=== PATIENT | female | born 1975 | race Caucasian/White ===

== ENCOUNTER 2024-12-03 22:57 | Observation (INO) | payer MEDICARE ==
[~2024-12-03] VITALS: Ht 172.7 cm; Wt 120.2 kg
[~2024-12-03 22:57] MED LIST: BUPR150ER PO; CEPH500 PO; FOLI1 PO; MELA3 PO; METPRE4DP PO; Methocarbamol750 MG PO; NAPROXEN500 MG PO; ONE DAILY ESS400 MCG PO; VITAMIN B-1250 MG PO
[2024-12-03] MEDS ORDERED: LORazepam 2 MG/ML 1ML Injection IM ONE (23:15)
[2024-12-03] MEDS ORDERED: OLANZapine 10 MG Vial IM ONE (23:15)
[2024-12-03] MEDS ORDERED: Haloperidol Lactate Inj. 5 MG/ML Injection IM ONE (23:55)
[2024-12-03] MEDS ORDERED: DiphenhydrAMINE HCl 50 MG/ML 1ML Vial IM ONE (23:55)
[2024-12-04 00:45] LABS: BASOPHILS ABSOLUTE AUTO 0.07 K/mm3 (0.00-0.23); BASOPHILS PERCENT AUTO 1 % (0-2); EOSINOPHILS ABSOLUTE AUTO 0.02 K/mm3 (0.00-0.68); EOSINOPHILS PERCENT AUTO 0 % (0-6); Hematocrit 43.8 % (33.0-51.0); Hemoglobin 14.8 g/dL (11.5-16.0); IMMATURE GRAN ABSOLUTE AUTO 0.02 K/mm3 (0.00-0.10); IMMATURE GRAN PERCENT AUTO 0 % (0-1); LYMPHOCYTES ABSOLUTE AUTO 1.57 K/mm3 (0.84-5.20); LYMPHOCYTES PERCENT AUTO 24 % (21-46); MONOCYTES ABSOLUTE AUTO 0.58 K/mm3 (0.16-1.47); MONOCYTES PERCENT AUTO 9 % (4-13); Mean Corpuscular HGB 29.4 pg (26.0-34.0); Mean Corpuscular HGB Conc 33.8 g/dL (31.5-36.5); Mean Corpuscular Volume 87 fL (80-100); Mean Platelet Volume 9.6 fL (9.1-12.4); NEUTROPHILS ABSOLUTE AUTO 4.24 K/mm3 (1.96-9.15); NEUTROPHILS PERCENT AUTO 65 % (41-73); Platelet Count 258 K/mm3 (150-400); RDW Coefficient Variation 13.5 % (11.7-14.2); RDW Standard Deviation 43.3 fL (35.1-46.3); Red Blood Cell Count 5.03 M/mm3 (3.80-5.20)
[2024-12-04 00:48] LABS: Base Excess Venous -1.7 mmol/L; Bicarbonate Venous 23.5 mmol/L (24.0-30.0); PCO2 Venous 34.8 mmHg (38-42); pH Blood Venous 7.42 (7.34-7.37)
[2024-12-04 01:11] LABS: U Amphetamine Screen Not Detected; U Barbituate Screen Not Detected; U Benzodiazapine Screen Not Detected; U Cocaine Screen Not Detected; U Methadone Screen Not Detected; U Methamphetamine Screen Not Detected; U Opiates Screen Not Detected; U Phencyclidine Screen Not Detected
[2024-12-04 01:12] LABS: U Buprenorphine Screen Not Detected; U Cannabinoids Screen DETECTED; U Oxycodone Screen Not Detected
[2024-12-04 01:14] LABS: Ethanol (Alcohol), Blood, Med <3 mg/dL; Salicylate <1.7 mg/dL (2.8-20.0)
[2024-12-04 01:16] LABS: Acetaminophen, Random <2.0 ug/mL (10.0-30.0); Alanine Aminotransfer (ALT/SGP 25 U/L (12-78); Albumin, Blood 3.5 g/dL (3.4-5.0); Alk Phos 86 U/L (50-136); Anion Gap 11 mmol/L (3-11); Aspartate Aminotrans (AST/SGOT 16 U/L (12-37); Bilirubin, Total 0.6 mg/dL (0.1-1.0); Blood Urea Nitrogen 8 mg/dL (8-24); Bun/Creatinine Ratio 9.3 (12.0-20.0); CO2, Blood 21 mmol/L (21-32); Calcium, Blood 9.6 mg/dL (8.5-10.1); Chloride, Blood 115 mmol/L (98-108); Creatinine, Blood 0.86 mg/dL (0.40-1.00); Globulin, Blood 3.5 g/dL (2.2-4.0); Glomerular Filtration Rate 83 (60-); Glucose, Blood 102 mg/dL (70-99); Potassium, Blood 3.3 mmol/L (3.5-5.5); Sodium, Blood 144 mmol/L (136-145)
[2024-12-04 15:02] VITALS: BP 101/72
[2024-12-04] MEDS ORDERED: GABA100 PO (18:00)
== END 2024-12-04 16:09 | disposition other institution (70) ==
LOC: ER 22:57 → EOR 23:34
PROVIDERS: ADMIT Emergency Medicine
DX: F33.2 Major depressive disorder, recurrent severe without psychotic features (principal)
CPT/HCPCS: 80053; 80320; 81025; 82375; 82803; 83036; 84443; 85025; 96372; 99285; G0378; G0480; J1200; J1630; J2060

== ENCOUNTER 2024-12-04 13:59 | Inpatient (IN) | payer MEDICARE ==
[~2024-12-04] VITALS: Ht 170.2 cm; Wt 130.2 kg
[2024-12-04 16:23] VITALS: BP 109/85
[2024-12-04] MEDS ORDERED: DiphenhydrAMINE HCl 50 MG/ML 1ML Vial IM PRN (17:00)
[2024-12-04] MEDS ORDERED: FLU VACC TS2024-25(6MOS UP)/PF 45 MCG/0.5 ML SYRINGE IM SCH (17:00)
[2024-12-04] MEDS ORDERED: DiphenhydrAMINE HCl 50 MG Cap PO PRN (17:05)
[2024-12-04] MEDS ORDERED: LORazepam 2 MG/ML 1ML Injection IM PRN (17:05)
[2024-12-04] MEDS ORDERED: Calcium Carbonate 500 MG Tab Chew PO PRN (17:05)
[2024-12-04] MEDS ORDERED: Aluminum Hydroxide 320MG/5ML 473 ML PO PRN (17:05)
[2024-12-04] MEDS ORDERED: TraZODone HCl 50 MG Tab PO PRN (17:05)
[2024-12-04] MEDS ORDERED: Polyethylene Glycol 3350 17 gm PO PRN (17:05)
[2024-12-04] MEDS ORDERED: Ondansetron 4 MG SoluTab MM PRN (17:05)
[2024-12-04] MEDS ORDERED: Haloperidol 5 MG Tab PO PRN (17:10)
[2024-12-04] MEDS ORDERED: Acetaminophen 325 MG TABLET PO PRN (17:10)
[2024-12-04] MEDS ORDERED: LORazepam 2 MG Tab PO PRN (17:10)
[2024-12-04] MEDS ORDERED: OLANZapine ODT 10 MG Tab MM PRN (17:10)
[2024-12-04] MEDS ORDERED: HydrOXYzine Pamoate 50 MG Cap PO PRN (17:10)
[2024-12-04] MEDS ORDERED: Melatonin 3 MG Tab PO PRN (17:10)
[2024-12-04] MEDS ORDERED: Ibuprofen 600 MG Tab PO PRN (17:10)
[2024-12-04] MEDS ORDERED: Haloperidol Lactate Inj. 5 MG/ML Injection IM PRN (17:15)
[2024-12-04 17:34] VITALS: BP 109/85
[2024-12-04] MEDS ORDERED: GABA100 PO (18:00)
--- NOTE | 2024-12-04 18:01 | NUR ---
ADMISSION NOTE/SHIFT SUMMARY PT ARRIVED TO [facility] FROM [facility] ED FOR INVOLUNTARY ADMISSION AT APPROX 1613. PT AxOx4. CALM AND SOMEWHAT COOPERATIVE WITH CARE. PT REPORTS FEELING TIRED UPON ADMISSION ASSESSMENT AND DECLINED TO ANSWER MOST QUESTIONS. PT DECLINED TO SIGN ANY ADMISSION CONSENT FORMS AND REPORTED TO BE "PISSED" THAT SHE WAS BEING HELD HERE BECAUSE SHE "WAS NEVER SUICIDAL." PT DENIES ANY RECENT TRIGGERING EVENTS LEADING UP TO THIS ADMISSION, REPORTS NO SUPPORT SYSTEM "I DON'T NEED ANYBODY" AND COMMENTED THAT SHE'S "NOT SUICIDAL, I JUST DON'T CARE TO LIVE AND THERE'S A DIFFERENCE." PT STATES THAT SHE WILL NOT BE PARTICIPATING IN ANY TREATMENT WHILE SHE IS HERE BECAUSE SHE IS BEING HELD AGAINST HER WILL. PT WAS BROUGHT IN BY POLICE HOLD AFTER SHE WAS FOUND IN HER CAR WITH A POOL NOODLE CONNECTED TO HER EXHAUST INTO THE VEHICLE. PT DENIED THIS VERSION, AND STATES THAT SHE WAS "JUST SLEEPING AND WANTED TO BE LEFT ALONE." PT RANTED ABOUT "IT'S FUNNY HOW IT'S MY BODY, MY CHOICE, UNTIL IT'S NOT." PT WAS ORIENTED TO THE UNIT, ATE DINNER AND WENT RIGHT BACK TO HER ROOM. PT IS CURRENTLY SLEEPING IN HER BED. APPEARS TO BE RESTING COMFORTABLY.
--- NOTE | 2024-12-05 04:13 | NUR ---
SHIFT SUMMARY PT LAYING IN BED, AWAKE AT START OF SHIFT. SHE HAS FLAT AFFECT, AND ANSWERS QUESTIONS WITH MINIMAL RESPONSE. DENIES ANY SI, HI, THOUGHTS OF SELF HARM AND DENIES ANY HALLUCINATIONS. PT CAME TO DINNING ROOM FOR EVENING SNACK. SHE RECEIVED PRN TRAZODONE AND MELATONIN TO ASSIST WITH SLEEPING. SHE WENT TO BED AT AROUND 2014 AND HAS APPEARED TO BE SLEEPING THROUGHOUT THE NIGHT, WITH RESPIRATIONS CONFIRMED. Q15 MINUTE CHECKS TO CONTINUE PER UNIT PROTOCOL.
[2024-12-05 06:36] VITALS: BP 132/85
[2024-12-05 08:23] VITALS: BP 124/60
[2024-12-05] MEDS ORDERED: Multivitamins 1 Tab PO SCH (09:00)
[2024-12-05] MEDS ORDERED: TraZODone HCl 50 MG Tab PO PRN (10:50)
[2024-12-05] MEDS ORDERED: buPROPion HCL 150 MG TAB.SR.12H PO SCH (11:00)
--- NOTE | 2024-12-05 14:21 | NUR ---
IMPORTANT HOSPITAL DISCHARGE INFORMATION Patient will discharge to [facility] crisis team for warm handoff to attend post-hospital hold appointment. Crisis to assist with aftercare appointments, other patient concerns, and ensure patient is safely returned to her vehicle. Patient on day one of mental health hold which ends on Wednesday, December 11, 2024 at 1700. Appointment information will be documented in patient's chart upon receipt
[2024-12-05] MEDS ORDERED: Gabapentin 300 MG Cap PO SCH (21:00)
[2024-12-05 22:06] VITALS: BP 110/80
--- NOTE | 2024-12-06 04:15 | NUR ---
SHIFT SUMMARY PT PRESENT IN GROUP ROOM AT START OF SHIFT. SHE IS A&O X4, PLEASANT AND COOPERATIVE. WHEN ASKED IF SHE HAD ANY SI, PT STATES "NO, THAT'S NOT WHAT I'M HERE FOR." PT ALSO DENIES ANY HI, THOUGHTS OF SELF HARM OR AVH. PT HAD EVENING SNACK. RECEIVED PRN MELATONIN AROUND 2030. SHE CONTINUED TO HAVE DIFFICULTY SLEEPING AND RECEIVED PRN TRAZODONE AROUND 2334. PT HAS APPEARED TO BE SLEEPING, WITH RESPIRATIONS CONFIRMED. Q15 MINUTE CHECKS TO CONTINUE PER UNIT PROTOCOL.
[2024-12-06 08:15] VITALS: BP 123/79
[2024-12-06] MEDS ORDERED: ARIPiprazole 5 MG Tab PO SCH (09:00)
--- NOTE | 2024-12-06 17:58 | NUR ---
SHIFT SUMMARY Pt A&O, calm, cooperative, eye contact is appropriate. Pt stated mood was "pretty good," affect this morning was euthymic with some periods of constriction. Denies SI, HI, and hallucinations. Pt c/o indigestion and received PRN Tums. She was active on the milieu and participated in groups. At abou 1645 pt was having episode of anxiety about conflict with her ex concerning her living situation. Staff calmed the pt down and she was given PRN olanzapine at 1700. Staff continues to monitor for safety and wellness.
[2024-12-06 20:58] VITALS: BP 124/80
--- NOTE | 2024-12-07 05:00 | NUR ---
SHIFT SUMMARY: PT A/O X4. DENES TO BE SI, HI AND AVH. PLEASANT AND COOPERTIVE. PT HAS CONCERNS ON HOW TO HANDLE THINGS AFTER SHE WILL BE GOING ONCE SHE DISCHARGES. HAS THINGS THAT CAN BE RESOLVED BUT WILL NEED TO BE "THOUGHT THROUGH CAREFULLY" IT INVOLVES HER "EX". SHE IS WORRIED ABOUT HER VAN ALSO. SHE LEFT IT ON THE HILL WHILE SHE WAS BEING ATTENDED TOO FOR HER ISSUE OF GETTING HELP. HAS A POSITIVE OUTLOOK. SHE IS SAD IN MOOD. UP IN GROUP ROOM UNTIL BED TIME. WENT TO SLEEP WELL BUT HAD A COUPLE OF AWAKE MOMENTS. NO ISSUES OR COMPLAINTS. WILL CONTINUE TO MONITOR
[2024-12-07 08:08] VITALS: BP 125/59
[2024-12-07 11:32] LABS: Albumin, Blood 3.7 g/dL (3.4-5.0); Albumin/Globulin Ratio 1.1 (0.8-1.8); Bilirubin, Total 0.8 mg/dL (0.1-1.0); Bun/Creatinine Ratio 20.1 (12.0-20.0); Calcium, Blood 9.5 mg/dL (8.5-10.1); Creatinine, Blood 0.8 mg/dL (0.40-1.00); Globulin, Blood 3.3 g/dL (2.2-4.0); Potassium, Blood 4.6 mmol/L (3.5-5.5)
--- NOTE | 2024-12-07 17:13 | NUR ---
PT ALERT, ORIENTED AND COOPERATIVE WITH CARE. DENIES SI, HI AND AVH. PT VERBALIZED CONCERNS R/T HER EX STATING HE HAS TOLD HER THAT HE PLANS TO GO TO HER HOUSE AND REMOVE HER THINGS ON WEDNESDAY. PT SPOKE WITH STICKER ON WHO ASSISTED HER IN CALLING POLICE DISPATCH TO REPORT THE SITUATION. PT ATTENDED GROUPS AND MEALS. WAS PRESENT ON THE UNIT AND ENGAGED IN MILIEU.
[2024-12-07 20:52] VITALS: BP 131/92
--- NOTE | 2024-12-08 04:36 | NUR ---
SHIFT SUMMARY PT HAS BEEN ASLEEP WITHOUT ISSUE SINCE 1999. SHE PARTICIPATED FULLY DURING SNACK TIME AND DURING TV TIME WITH HER PEERS. SHE DENIED SI/HI & AVH WHEN INTERVIEWING HER. FROM THE DAY THIS PT WAS ADMITTED TO NOW, THIS PT LOOKS COMPLETELY DIFFERENT, THIS RN DIDN'T RECOGNIZE HER, SHE IS VERY MUCH MORE PUT TOGETHER AND ENGAGING, SHE IS LOOKING FORWARD TO D/C. PT HAS BEEN ON Q15 SAFETY CHECKS THROUGHOUT THE SHIFT
--- NOTE | 2024-12-08 04:40 | NUR ---
SHIFT SUMMARY PT HAS HAD MULTIPLE COMPLAINTS THROUGH OUT THE NIGHT. SHE PARTICIPATED IN SNACK TIME AND THE MILIEU WITH HER PEERS. SHE SPENT A LOT OF TIME SPEAKING WITH [employer]ER CIFUENTES DURING TV TIME. SHE REFUSED HER ZYPREXA DURING MED PASS AND ONLY WANTED HER MELATONIN. AFTER HER PEERS WERE ALL IN BED, HER COMPLAINTS OVER 2-3 HOURS WERE VERTIGO, HER R EYE IS TWITCHY, THE R KNEE IS PAINFUL, SHE HAD A 3/10 HEADACHE FOR WHICH SHE RECEIVED TYLENOL PRN. SHE RECEIVED A DOSE OF MIRALAX ON DAY SHIFT YESTERDAY, EARLY IN DAY. HER BIGGEST CONCERN WAS THAT SHE MIGHT HAVE TO HAVE A BM AND DIDN'T WANT TO DO IT WHILE HER ROOMMATE WAS SLEEPING. AT 0140, SHE CAME OUT AND LAID ON THE FLOOR NEXT TO THE DESK TO JOURNAL. AT 0230, SHE JUST COULDN'T SHUT HER BRAIN DOWN. THIS RN SUGGEST A BOOK TO TAKE HR MIND SOMEWHERE ELSE. SHE PICKED OUT A BOOK, WENT IN THE SENSORY ROOM AND WAS ASLEEP AT [phone] WHEN SHE WOKE AND WENT TO HER ROOM. SHE HAS BEEN IN HER ROOM SINCE 0330, APPEARS TO BE SLEEPING. PT HAS HAD Q15 SAFETY CHECKS THROUGH THE NIGHT
[2024-12-08 07:48] VITALS: BP 128/68
--- NOTE | 2024-12-08 12:19 | NUR ---
PT IN POSITVE MOOD AND INTERACTS WITH PEES
--- NOTE | 2024-12-08 16:13 | NUR ---
P A/O X4. PLESANT AND COOPERATIVE. MED COMPLIANT. POSITIVE IN MOOD. DENIES SI,HI AND AVH. STATED SHE IS BETTER AND CAN FACE" THE CHALLENGES" AFTER DSCHARGE. CASE MANGEMENT AND [employer] HAVE GIVEN HER RESOURCES AND ENCOURAGEMENT. CONCERNED WITH GETTING THINGS DONE FOR HER DAUGHTER ALSO. HAS BEEN JOURNALING TODAY AND PARTICIPATED IN GROUP ACTIVITES. WILL CONTINUE TO MONITOR.
[2024-12-08 21:35] VITALS: BP 121/84
--- NOTE | 2024-12-09 06:05 | NUR ---
SHIFT SUMMARY Pt is A&O, calm, cooperative, eye contact is appropriate. Pt's mood is "positive, happy," affect is euthymic and congruent to stated mood. Pt denies SI, HI, and hallucinations. Pt was active on the milieu, coming out of her room for snacks, VS, and med. Staff continues to monitor q15m for safety and wellness.
[2024-12-09 08:43] VITALS: BP 135/67
--- NOTE | 2024-12-09 11:51 | NUR ---
PT IN "POSITIVE, HAPPY" MOOD IN HER OWN WORDS. DENIES SI,HI AND AVH. WILL CONTINUE TO MONITOR.
[2024-12-09] MEDS ORDERED: TraZODone HCl 50 MG Tab PO PRN (13:30)
--- NOTE | 2024-12-09 16:19 | NUR ---
SHIFT SUMMARY: PT A/O X4. DENIES SI,HI AND AVH. PLEASANT AND COOPERTIVE. MED COMPLIANT AND PARTICIPATES IN ALL GROUPS AND ACTIVITIES. STATES "IS IN A POSITIVE AND HAPPY MOOD". SLEPT WELL AND THINKS IT MAY BE FROM NOT HAVING A ROOM MATE LAST NIGHT. WILL CONTINUE TO MONITOR
[2024-12-09 20:19] VITALS: BP 124/80
--- NOTE | 2024-12-10 06:07 | NUR ---
SHIFT SUMMARY Pt is A&O, calm, cooperative, eye contact is appropriate. Pt stated her mood was "pretty good, happy," affect is euthymic and congruent to stated mood. Pt denies SI, HI, hallucinations. Pt spent most of the evening reading in her room, but came to the dining room for a snack. PRN trazodone was increased to 50mg and pt seemed very pleased with that change. Staff continues to monitor q15m for safety and wellness.
[2024-12-10 08:08] VITALS: BP 134/76
--- NOTE | 2024-12-10 17:01 | NUR ---
SHIFT SUMMARY: PT A/O X4. DNIES TO BE SI, HI AND AVH. IS IN A "POSITIVE HAPPY MOOD". PT HAS BEEN JORNALING MOST OF THE DAY. PARTICIPATES IN GROUPS. STATED HAD NIGHTMARES FROM THE INCREASE OF TRAZODONE. SEEN PT AND DISCUSSED THE MEDICATION AND IT'S EFFECTIVENESS. PT IS READY TO BE CHALLENGED ON ISSUES AT HOME AND IS GRATEFUL FOR THE HELP SHE IS RECEIVING HERE. WILL CONTINUE TO MONITOR
[2024-12-10 20:11] VITALS: BP 140/76
--- NOTE | 2024-12-11 04:19 | NUR ---
SHIFT SUMMARY PATIENT IN BED WRITING IN JOURNAL AT BEGINNING OF SHIFT. VERBALIZED SHE IS FEELING GOOD TODAY AND THAT SHE FEELS "WELLBUTRIN WORKS WELL FOR ME". PT WENT TO SNACK AND WAS VISITING WELL WITH PEERS AND STAFF. DENIES SI, HI, OR AVH. COOPERATIVE WITH MEDICATIONS. APPEARS TO BE SLEEPING WELL T/O NIGHT WITH RESPIRATIONS EVEN AND UNLABORED. CONTINUE TO MONITOR Q15MIN.
[2024-12-11] MEDS ORDERED: GABA300 PO (13:39)
[2024-12-11] MEDS ORDERED: BUPROPION XL150 M1 PO (13:39)
[2024-12-11] MEDS ORDERED: MELATONIN3 M1 PO (13:40)
[2024-12-11] MEDS ORDERED: TRAZ50 PO (13:43)
--- NOTE | 2024-12-11 17:33 | NUR ---
SHIFT SUMMARY: PT ALERT, ORIENTED AND COOPERATIVE WITH CARE. COMPLIANT WITH MEDICATIONS. DENIES SI, HI AND AVH. PT ATTENDED GROUPS AND HAS BEEN ACTIVE IN THE UNIT MILIEU. NO ACUTE CHANGES THIS SHIFT.
[2024-12-11 20:55] VITALS: BP 127/71
--- NOTE | 2024-12-12 04:07 | NUR ---
Patient is very pleasant A&OX4 and cooperative with care. She participated in activities of the milieu and had pre bedtime snack with her peers. No SI,HI or AH,VH or TH at time of evening assessment. She did express that she was both excited and anxious about her discharge in the morning. Bed around 2100, and patient is still sleeping at this time. Will continue close monitoring for safety and comfort.
[2024-12-12 08:13] VITALS: BP 114/58
--- NOTE | 2024-12-12 09:03 | NUR ---
DISCHARGE PT A/O X4; PLEASANT AND COOPERATIVE WITH CARE. SHE DENIES SI, HI, HALLUCINATIONS. SHE SHOWERED AND DRESSED IN SOME DONATED CLOTHES DUE HER CLOTHES BEING IN A STATE OF DISREPAIR WHEN SHE CAME IN. PT PICKED UP BY MEGAN AND HER MEDICATIONS TO BE FILLED AT [facility]. [facility]T TO [facility] PORTABLE MACHINE MEDICATIONS AND TO HELP SET UP FOLLOW UP APPOINTMENTS. PT PICKED UP BY MEGAN AT 0903.
== END 2024-12-12 09:03 | disposition home or self-care (01) | DRG 885 ==
LOC: BHU 13:59
PROVIDERS: ADMIT Student in an Organized Health Care Education/Training Program
DX: F33.2 Major depressive disorder, recurrent severe without psychotic features (principal); F84.0 Autistic disorder; Z88.8 Allergy status to other drugs, medicaments and biological substances; Z79.899 Other long term (current) drug therapy; Z79.891 Long term (current) use of opiate analgesic; Z81.8 Family history of other mental and behavioral disorders; Z79.1 Long term (current) use of non-steroidal anti-inflammatories (NSAID)
CPT/HCPCS: 36415; 80053; 93005; 93010; A9270

== ENCOUNTER 2025-10-09 11:46 | Observation (INO) | payer MEDICARE ==
[~2025-10-09] VITALS: Ht 170.2 cm; Wt 95.2 kg
[~2025-10-09 11:46] MED LIST changes: +BUPROPION XL150 M1 PO; +GABA100 PO; +GABA300 PO; +MELATONIN3 M1 PO; +TRAZ50 PO
[2025-10-09 13:04] LABS: BASOPHILS ABSOLUTE AUTO 0.05 K/mm3 (0.00-0.23); BASOPHILS PERCENT AUTO 1 % (0-2); EOSINOPHILS ABSOLUTE AUTO 0.05 K/mm3 (0.00-0.68); EOSINOPHILS PERCENT AUTO 1 % (0-6); Hematocrit 46.7 % (33.0-51.0); Hemoglobin 15.6 g/dL (11.5-16.0); IMMATURE GRAN ABSOLUTE AUTO 0.01 K/mm3 (0.00-0.10); IMMATURE GRAN PERCENT AUTO 0 % (0-1); LYMPHOCYTES ABSOLUTE AUTO 1.35 K/mm3 (0.84-5.20); LYMPHOCYTES PERCENT AUTO 29 % (21-46); MONOCYTES ABSOLUTE AUTO 0.36 K/mm3 (0.16-1.47); MONOCYTES PERCENT AUTO 8 % (4-13); Mean Corpuscular HGB Conc 33.4 g/dL (31.5-36.5); Mean Corpuscular Volume 87 fL (80-100); NEUTROPHILS ABSOLUTE AUTO 2.91 K/mm3 (1.96-9.15); NEUTROPHILS PERCENT AUTO 62 % (41-73); NRBC ABSOLUTE 0.00 K/mm3 (0.00-0.02); NRBC Auto 0.0 /100 WBC (0.0-0.2); Platelet Count 260 K/mm3 (150-400); RDW Coefficient Variation 12.2 % (11.7-14.2); RDW Standard Deviation 38.8 fL (35.1-46.3)
[2025-10-09 13:19] LABS: Ethanol (Alcohol), Blood, Med <3 mg/dL; Salicylate 2.1 mg/dL (2.8-20.0)
[2025-10-09 13:20] LABS: Acetaminophen, Random <2.0 ug/mL (10.0-30.0); Alanine Aminotransfer (ALT/SGP 19 U/L (12-78); Albumin, Blood 4.4 g/dL (3.4-5.0); Albumin/Globulin Ratio 1.3 (0.8-1.8); Anion Gap 11 mmol/L (3-11); Aspartate Aminotrans (AST/SGOT 15 U/L (12-37); Bilirubin, Total 0.6 mg/dL (0.1-1.0); Blood Urea Nitrogen 8 mg/dL (8-24); CO2, Blood 25 mmol/L (21-32); Calcium, Blood 9.7 mg/dL (8.5-10.1); Chloride, Blood 109 mmol/L (98-108); Creatinine, Blood 0.74 mg/dL (0.40-1.00); Globulin, Blood 3.4 g/dL (2.2-4.0); Glucose, Blood 91 mg/dL (70-99); Potassium, Blood 4.1 mmol/L (3.5-5.5); Sodium, Blood 141 mmol/L (136-145); Total Protein, Blood 7.8 g/dL (6.4-8.2)
[2025-10-09 14:30] LABS: Source, Urine Clean Catch
[2025-10-09 15:11] LABS: Bilirubin, Urine Neg (Neg); Color, Urine Yellow (P-Yellow); Glucose Qualitative, Urine Neg (Neg); Ketones, Urine Neg (Neg); Leukocyte Esterase, Urine Neg (Neg); Protein, Urine Neg (Neg); Specific Gravity, Urine 1.010 (1.003-1.022); Urobilinogen, Urine NORM (Normal)
[2025-10-09 15:28] LABS: U Amphetamine Screen Not Detected; U Barbiturate Screen Not Detected; U Benzodiazapine Screen Not Detected; U Buprenorphine Screen Not Detected; U Cannabinoids Screen DETECTED; U Cocaine Screen Not Detected; U Methadone Screen Not Detected; U Methamphetamine Screen Not Detected; U Opiates Screen Not Detected; U Oxycodone Screen Not Detected; U Phencyclidine Screen Not Detected
[2025-10-09] MEDS ORDERED: LORazepam 2 MG/ML 1ML Injection ONE (15:35)
[2025-10-09] MEDS ORDERED: Haloperidol Lactate Inj. 5 MG/ML Injection IM ONE (16:05)
[2025-10-09] MEDS ORDERED: DiphenhydrAMINE HCl 50 MG/ML 1ML Vial IM ONE (16:05)
[2025-10-09] MEDS ORDERED: Haloperidol Lactate Inj. 5 MG/ML Injection ONE (16:06)
[2025-10-09 19:46] LABS: CORONAVIRUS COVID-19 AG Negative (NEGATIVE)
[2025-10-10 11:33] VITALS: BP 120/74
== END 2025-10-10 16:22 ==
LOC: ER 11:46 → EOR 11:47
PROVIDERS: ADMIT Student in an Organized Health Care Education/Training Program
DX: F33.2 Major depressive disorder, recurrent severe without psychotic features (principal); R45.851 Suicidal ideations; F17.200 Nicotine dependence, unspecified, uncomplicated; E66.9 Obesity, unspecified; Z68.32 Body mass index [BMI] 32.0-32.9, adult; Z79.899 Other long term (current) drug therapy; Z98.84 Bariatric surgery status
CPT/HCPCS: 80053; 80320; 81003; 81025; 85025; 87428-QW; 93005; 93010; 96372; 99285-25; A9270; G0378; G0480; J1200; J1630; J2060